=== PATIENT | male | born 1990 | race Caucasian/White ===

== ENCOUNTER 2021-12-28 10:10 | Emergency (ER) | payer SELFPAY ==
[2021-12-28 10:13] VITALS: RESP 20; TEMP 98
[2021-12-28] MEDS ORDERED: KETOROLAC 15 MG/ML 1 ML VIAL IVP STA (12:02)
[2021-12-28] MEDS ORDERED: CYCLOBENZAPRINE 10 MG TAB PO STA (12:04)
[2021-12-28] MEDS ORDERED: LIDOCAINE 5% PATCH TOPICAL SCH (12:15)
--- NOTE | 2021-12-28 12:33 | XR ---
EXAMINATION TYPE: XR ribs LT w pa chest xray DATE OF EXAM: 12/28/2021 12:13 PM INDICATION: Patient age:Male; 31 years old; Reason for study: pain; PHH. COMPARISON: None TECHNIQUE: Frontal and oblique views of the left ribs with frontal chest radiograph. FINDINGS: The ribs have a normal appearance. No evidence of fracture. Overall, the lungs are clear. The cardiac silhouette is normal in size. The remaining osseous structures are intact. IMPRESSION RIBS: No acute osseous pathology.
--- NOTE | 2021-12-28 12:48 | ED ---
Back Pain HPI - General Chief Complaint: Back Pain/Injury Stated Complaint: back pain Time Seen by Provider: 12/28/21 11:57 Source: patient Limitations: no limitations - History of Present Illness Initial Comments: Patient is an otherwise healthy male who presents to the emergency department with a chief complaint of left rib pain. Patient states he was on a ladder reaching up for something in his garage yesterday when he felt pain in his ribs. Pain is worsened with movement of the torso. Patient has not taken any for pain. Patient did not fall or hit his head. Denies back pain. Denies chest pain and shortness of breath. - Related Data Previous Rx's Medication Instructions Recorded Cyclobenzaprine [Flexeril] 10 mg PO HS PRN #7 tab 12/28/21 Ketorolac [Toradol] 10 mg PO Q8HR #15 tab 12/28/21 Lidocaine 5% Patch [Lidoderm 5% 1 patch TOPICAL DAILY #7 patch 12/28/21 Patch] Allergies Allergy/AdvReac Type Severity Reaction Status Date / Time No Known Allergies Allergy Verified 12/28/21 10:13 Review of Systems ROS Statement: Those systems with pertinent positive or pertinent negative responses have been documented in the HPI. ROS Other: All systems not noted in ROS Statement are negative. Past Medical History Past Medical History: Asthma History of Any Multi-Drug Resistant Organisms: None Reported Past Surgical History: No Surgical Hx Reported Past Psychological History: No Psychological Hx Reported Smoking Status: Current every day smoker Past Alcohol Use History: None Reported Past Drug Use History: Marijuana General Exam Limitations: no limitations General appearance: alert, in no apparent distress Head exam: Present: atraumatic, normocephalic, normal inspection Eye exam: Present: normal appearance, PERRL, EOMI. Absent: scleral icterus, conjunctival injection, periorbital swelling Respiratory exam: Present: normal lung sounds bilaterally, chest wall tenderness (left lateral lower ribs ). Absent: respiratory distress, wheezes, rales, rhonchi, stridor, decreased breath sounds Cardiovascular Exam: Present: regular rate, normal rhythm, normal heart sounds. Absent: systolic murmur, diastolic murmur, rubs, gallop, clicks GI/Abdominal exam: Present: soft, normal bowel sounds. Absent: distended, tenderness, guarding, rebound, rigid Back exam: Present: normal inspection. Absent: tenderness, paraspinal tenderness, vertebral tenderness Neurological exam: Present: alert, oriented X3, CN II-XII intact Psychiatric exam: Present: normal affect, normal mood Skin exam: Present: warm, dry, intact, normal color. Absent: rash Course Vital Signs 12/28/21 12/28/21 10:12 13:28 Temperature 98 F Pulse Rate 73 74 Respiratory 20 20 Rate Blood Pressure 154/95 132/78 O2 Sat by Pulse 99 99 Oximetry Medical Decision Making - Medical Decision Making This is a 31-year-old male who presents with left rib pain. Chest and rib x- rays unremarkable. Symptomatic treatment provided in the emergency department with improvement of symptoms. He will be discharged with medication for muscle strain. Dr. Talbert is my attending. Disposition Clinical Impression: Rib pain on left side, Muscle strain Disposition: HOME SELF-CARE Condition: Good Instructions (If sedation given, give patient instructions): Muscle Strain (ED) Additional Instructions: Take medication as directed. Do not drink alcohol or machinery while taking Flexeril as it can make you sleepy. Follow-up with primary care provider in one to 2 days. Return to the emergency department experience new, concerning or worsening symptoms. Prescriptions: Cyclobenzaprine [Flexeril] 10 mg PO HS PRN #7 tab PRN Reason: Muscle Spasm Lidocaine 5% Patch [Lidoderm 5% Patch] 1 patch TOPICAL DAILY #7 patch Ketorolac [Toradol] 10 mg PO Q8HR #15 tab Is patient prescribed a controlled substance at d/c from ED?: No Referrals: None,Stated [Primary Care Provider] - 1-2 days Time of Disposition: 12:48
[2021-12-28 13:28] VITALS: BP 132/78; PULSE 74
== END 2021-12-28 13:29 | disposition home or self-care (01) ==
LOC: EC 10:10
DX: S29.011A Strain of muscle and tendon of front wall of thorax, initial encounter (principal); J45.909 Unspecified asthma, uncomplicated; F17.200 Nicotine dependence, unspecified, uncomplicated; F12.90 Cannabis use, unspecified, uncomplicated; Z79.899 Other long term (current) drug therapy; X50.9XXA Other and unspecified overexertion or strenuous movements or postures, initial encounter
CPT/HCPCS: 99283; 96374; 71101; J1885

== ENCOUNTER 2022-03-05 20:32 | Emergency (ER) | payer BC ==
[2022-03-05 21:10] VITALS: BP 141/91; PULSE 83; RESP 16; TEMP 98.6
[2022-03-05] MEDS ORDERED: Acetaminophen-Codeine 300-30mg TAB PO STA (21:37)
[2022-03-05] MEDS ORDERED: AMOXIC-POT CLAV 875MG STARTER PACK 2 TAB BTL PO STA (21:37)
[2022-03-05] MEDS ORDERED: IBUPROFEN 600 MG TAB PO STA (21:37)
[2022-03-05] MEDS ORDERED: dexAMETHasone 2 MG TAB PO STA (21:37)
[2022-03-05] MEDS ORDERED: AMOXIC-POT CLAV 875-125MG 1 EACH TAB PO STA (21:37)
[2022-03-05] MEDS ORDERED: IBUPROFEN 600 MG STARTER PACK 4 TAB BTL PO STA (21:37)
[2022-03-05] MEDS ORDERED: ACET/COD 300 MG/30 MG STARTER PACK 6 TAB BTL PO STA (21:37)
--- NOTE | 2022-03-05 21:38 | ED ---
ENT HPI - General Chief complaint: Dental/Oral Stated complaint: Dental issues Time Seen by Provider: 03/05/22 21:24 Source: patient, RN notes reviewed, old records reviewed Mode of arrival: ambulatory Limitations: no limitations - History of Present Illness Initial comments: This is a 32-year-old male to the emergency department for evaluation. Patient coming in for severe tooth pain. Patient has history of dental disease and dental caries. Swelling and difficulty chewing. Pain is severe tonight and is unable to sleep MD complaint: tooth pain, ear pain -: hour(s) Location: tooth # Severity: severe Severity scale (1-10): 8 Quality: stabbing Consistency: constant Improves with: none Worsens with: none Context- Dental: history of dental caries, poor dental care Associated Symptoms: other (0) - Related Data Previous Rx's Medication Instructions Recorded Cyclobenzaprine [Flexeril] 10 mg PO HS PRN #7 tab 12/28/21 Ketorolac [Toradol] 10 mg PO Q8HR #15 tab 12/28/21 Lidocaine 5% Patch [Lidoderm 5% 1 patch TOPICAL DAILY #7 patch 12/28/21 Patch] Amoxic-Pot Clav 875-125Mg 1 tab PO Q12HR #20 tablet 03/05/22 [Augmentin 875-125] Allergies Allergy/AdvReac Type Severity Reaction Status Date / Time No Known Allergies Allergy Verified 03/05/22 21:08 Review of Systems ROS Statement: Those systems with pertinent positive or pertinent negative responses have been documented in the HPI. ROS Other: All systems not noted in ROS Statement are negative. Past Medical History Past Medical History: Asthma History of Any Multi-Drug Resistant Organisms: None Reported Past Surgical History: No Surgical Hx Reported Past Psychological History: No Psychological Hx Reported Smoking Status: Current every day smoker Past Alcohol Use History: None Reported Past Drug Use History: Marijuana General Exam Limitations: no limitations General appearance: alert, in no apparent distress Head exam: Present: atraumatic, normocephalic, normal inspection Eye exam: Present: normal appearance, PERRL, EOMI. Absent: scleral icterus, conjunctival injection, periorbital swelling ENT exam: Present: normal exam, mucous membranes moist Neck exam: Present: normal inspection. Absent: tenderness, meningismus, lymphadenopathy Respiratory exam: Present: normal lung sounds bilaterally. Absent: respiratory distress, wheezes, rales, rhonchi, stridor Cardiovascular Exam: Present: regular rate, normal rhythm, normal heart sounds. Absent: systolic murmur, diastolic murmur, rubs, gallop, clicks GI/Abdominal exam: Present: soft, normal bowel sounds. Absent: distended, tenderness, guarding, rebound, rigid Extremities exam: Present: normal inspection, full ROM, normal capillary refill. Absent: tenderness, pedal edema, joint swelling, calf tenderness Back exam: Present: normal inspection Neurological exam: Present: alert, oriented X3, CN II-XII intact Psychiatric exam: Present: normal affect, normal mood Skin exam: Present: warm, dry, intact, normal color. Absent: rash Course Vital Signs 03/05/22 21:08 Temperature 98.6 F Pulse Rate 83 Respiratory 16 Rate Blood Pressure 141/91 O2 Sat by Pulse 99 Oximetry - Reevaluation(s) Reevaluation #1: 03/05/22 Medical records reviewed Patient symptoms improved here in the ER Patient informed of results and questions answered Medical Decision Making - Medical Decision Making 32 male to the emergency department for evaluation of dental pain. Severe tooth pain place on antibiotics and pain medication and can be discharged home Disposition Clinical Impression: Dental abscess, Toothache, Dental caries Disposition: HOME SELF-CARE Condition: Good Instructions (If sedation given, give patient instructions): Dental Abscess (ED), Toothache (ED) Prescriptions: Amoxic-Pot Clav 875-125Mg [Augmentin 875-125] 1 tab PO Q12HR #20 tablet Is patient prescribed a controlled substance at d/c from ED?: No Referrals: None,Stated [REFERRING] - 1-2 days Time of Disposition: 21:40
== END 2022-03-05 21:58 | disposition home or self-care (01) ==
LOC: EC 20:32
DX: K04.7 Periapical abscess without sinus (principal); K02.9 Dental caries, unspecified; J45.909 Unspecified asthma, uncomplicated; F17.200 Nicotine dependence, unspecified, uncomplicated; F12.90 Cannabis use, unspecified, uncomplicated
CPT/HCPCS: 99283; J8540

== ENCOUNTER 2022-03-31 01:14 | Emergency (ER) | payer BC ==
[2022-03-31 01:26] VITALS: TEMP 97.9
[2022-03-31] MEDS ORDERED: diphenhydrAMINE 50 MG/ML 1 ML VIAL IVP STA (04:05)
[2022-03-31] MEDS ORDERED: ONDANSETRON 4 MG/2 ML VIAL IVP STA (04:05)
[2022-03-31] MEDS ORDERED: KETOROLAC 15 MG/ML 1 ML VIAL IVP STA (04:05)
[2022-03-31] MEDS ORDERED: SODIUM CHLORIDE 0.9% 1,000 ML IV STA (04:05)
--- NOTE | 2022-03-31 04:11 | ED ---
General Adult HPI - General Chief complaint: Headache Stated complaint: Migraine, Vomiting Time Seen by Provider: 03/31/22 03:53 Source: patient Mode of arrival: ambulatory Limitations: no limitations - History of Present Illness Initial comments: Dictation was produced using [employer] dictation software. please excuse any grammatical, word or spelling errors. Chief Complaint: 32-year-old male presents emergency department for headache History of Present Illness: 32-year-old male who presents emergency department for headache. Patient's headache since approximately 10:00 last night. States that his headache is severe. He does have a history of headaches however today's headache is very different. No numbness or paresthesias. It is not radiate to his neck. No neck stiffness. Denies any fever, chills or night sweats. Patient was not able to work because of his symptoms. The ROS documented in this emergency department record has been reviewed and confirmed by me. Those systems with pertinent positive or negative responses have been documented in the HPI. All other systems are other negative and/or noncontributory. PHYSICAL EXAM: General Impression: Alert and oriented x3, not in acute distress HEENT: Normocephalic atraumatic, extra-ocular movements intact, pupils equal and reactive to light bilaterally, mucous membranes moist. Cardiovascular: Heart regular rate and rhythm Chest: Able to complete full sentences, no retractions, no tachypnea Abdomen: abdomen soft, non-tender, non-distended, no organomegaly Musculoskeletal: Pulses present and equal in all extremities, no peripheral edema Motor: no focal deficits noted Neurological: CN II-XII grossly intact, no focal motor or sensory deficits noted, negative Lhermitte's, negative Kernig's, negative Brudzinski Skin: Intact with no visualized rashes Psych: Normal affect and mood ED course: 32-year-old well-appearing male presents emergency department for headache. Signs upon arrival are within acceptable limits. Patient's well- appearing at bedside resting comfortably. Nursing notes and chart review was performed Computed tomography scan unremarkable. Patient given headache cocktail. Patient is benign appearing. No high-risk features. Patient will be discharged. - Related Data Previous Rx's Medication Instructions Recorded Cyclobenzaprine [Flexeril] 10 mg PO HS PRN #7 tab 12/28/21 Ketorolac [Toradol] 10 mg PO Q8HR #15 tab 12/28/21 Lidocaine 5% Patch [Lidoderm 5% 1 patch TOPICAL DAILY #7 patch 12/28/21 Patch] Amoxic-Pot Clav 875-125Mg 1 tab PO Q12HR #20 tablet 03/05/22 [Augmentin 875-125] Allergies Allergy/AdvReac Type Severity Reaction Status Date / Time No Known Allergies Allergy Verified 03/31/22 01:26 Review of Systems ROS Statement: Those systems with pertinent positive or pertinent negative responses have been documented in the HPI. ROS Other: All systems not noted in ROS Statement are negative. Past Medical History Past Medical History: Asthma History of Any Multi-Drug Resistant Organisms: None Reported Past Surgical History: No Surgical Hx Reported Past Psychological History: No Psychological Hx Reported Smoking Status: Current every day smoker Past Alcohol Use History: Occasional Past Drug Use History: Marijuana General Exam Limitations: no limitations Course Vital Signs 03/31/22 03/31/22 01:24 05:28 Temperature 97.9 F Pulse Rate 117 H 84 Respiratory 18 15 Rate Blood Pressure 138/82 133/78 O2 Sat by Pulse 96 99 Oximetry Disposition Clinical Impression: Acute headache Disposition: HOME SELF-CARE Condition: Good Instructions (If sedation given, give patient instructions): Acute Headache (ED) Is patient prescribed a controlled substance at d/c from ED?: No Referrals: Donte Salazar DO [Primary Care Provider] - 1-2 days Time of Disposition: 05:30
--- NOTE | 2022-03-31 04:32 | CT ---
EXAMINATION TYPE: CT brain wo con DATE OF EXAM: 03/31/2022 COMPARISON: None HISTORY: Headache with nausea and vomitting. CT DLP: 1123.2 mGycm Automated exposure control for dose reduction was used. Images obtained of the brain with no contrast. Ventricles have normal size. There is no mass effect or midline shift. No sign of intracranial hemorr emily. No evidence of cerebral edema. Calvarium is intact. IMPRESSION: Negative unenhanced head CT scan
[2022-03-31 05:29] VITALS: BP 133/78; PULSE 84; RESP 15
== END 2022-03-31 05:40 | disposition home or self-care (01) ==
LOC: EC 01:14
DX: G43.909 Migraine, unspecified, not intractable, without status migrainosus (principal); J45.909 Unspecified asthma, uncomplicated; F17.200 Nicotine dependence, unspecified, uncomplicated; F12.90 Cannabis use, unspecified, uncomplicated
CPT/HCPCS: 70450; 99284; 96374; 96375 ×2; 96361; J1200; J2405; J1885

== ENCOUNTER 2022-05-19 07:06 | Emergency (ER) | payer BC ==
[2022-05-19 07:14] VITALS: RESP 18; TEMP 98.2
[2022-05-19] MEDS ORDERED: ONDANSETRON 4 MG/2 ML VIAL IVP STA (07:26)
[2022-05-19] MEDS ORDERED: DICYCLOMINE 10 MG/ML 2 ML AMP IM STA (07:26)
[2022-05-19] MEDS ORDERED: SODIUM CHLORIDE 0.9% 1,000 ML IV STA (07:26)
[2022-05-19] MEDS ORDERED: FAMOTIDINE 20 MG/2 ML VIAL IV STA (07:29)
--- NOTE | 2022-05-19 07:30 | ED ---
General Adult HPI - General Chief complaint: Nausea/Vomiting/Diarrhea Stated complaint: Nausea,light headed,diarrhea Time Seen by Provider: 05/19/22 07:19 Source: patient, RN notes reviewed Mode of arrival: ambulatory Limitations: no limitations - History of Present Illness Initial comments: Patient is a pleasant 32-year-old male presenting to the emergency department with concerns for nausea vomiting diarrhea. Onset of symptoms was last night. Patient vomited multiple times and also had several episodes of diarrhea. Patient states diarrhea seems to be letting up however still nauseated. No significant abdominal pain. Patient did have some burning in his chest during emesis only, not otherwise. No pain at this time. - Related Data Previous Rx's Medication Instructions Recorded Cyclobenzaprine [Flexeril] 10 mg PO HS PRN #7 tab 12/28/21 Ketorolac [Toradol] 10 mg PO Q8HR #15 tab 12/28/21 Lidocaine 5% Patch [Lidoderm 5% 1 patch TOPICAL DAILY #7 patch 12/28/21 Patch] Amoxic-Pot Clav 875-125Mg 1 tab PO Q12HR #20 tablet 03/05/22 [Augmentin 875-125] Allergies Allergy/AdvReac Type Severity Reaction Status Date / Time No Known Allergies Allergy Verified 05/19/22 07:14 Review of Systems ROS Statement: Those systems with pertinent positive or pertinent negative responses have been documented in the HPI. ROS Other: All systems not noted in ROS Statement are negative. Constitutional: Denies: fever Eyes: Denies: eye pain ENT: Denies: ear pain Respiratory: Denies: cough Cardiovascular: Reports: as per HPI Endocrine: Denies: fatigue Gastrointestinal: Reports: nausea, vomiting, diarrhea Past Medical History Past Medical History: Asthma History of Any Multi-Drug Resistant Organisms: None Reported Past Surgical History: No Surgical Hx Reported Past Psychological History: No Psychological Hx Reported Smoking Status: Current every day smoker Past Alcohol Use History: Occasional Past Drug Use History: Marijuana General Exam Limitations: no limitations General appearance: alert, in no apparent distress Head exam: Present: normocephalic Eye exam: Present: normal appearance Neck exam: Present: normal inspection Respiratory exam: Present: normal lung sounds bilaterally Cardiovascular Exam: Present: tachycardia Expanded Peripheral pulses: 2+: Posterior Tibialis (R), Posterior Tibialis (L) GI/Abdominal exam: Present: soft, normal bowel sounds. Absent: distended, tenderness, guarding, rebound, rigid, pulsatile mass Extremities exam: Present: normal inspection. Absent: pedal edema, calf tenderness Neurological exam: Present: alert Psychiatric exam: Present: normal affect, normal mood Skin exam: Present: normal color Course Vital Signs 05/19/22 07:07 Temperature 98.2 F Pulse Rate 118 H Respiratory 18 Rate Blood Pressure 146/89 O2 Sat by Pulse 96 Oximetry EKG Findings - EKG Results: EKG: interpreted by ERMD (Septal Q waves), sinus rhythm, normal axis, normal ST/T EKG shows: tachycardia Medical Decision Making - Medical Decision Making Was pt. sent in by a medical professional or institution (, PA, IT SPECIALIST, urgent care, hospital, or correction...) When possible be specific @ -No Did you speak to anyone other than the patient for history (EMS, parent, family, police, friend...)? What history was obtained from this source @ -No Did you review nursing and triage notes (agree or disagree)? Why? @ -I reviewed and agree with nursing and triage notes Were old charts reviewed (outside hosp., previous admission, EMS record, old EKG, old radiological studies, urgent care reports/EKG's, correction records)? Report findings @ -No old charts were reviewed Differential Diagnosis (chest pain, altered mental status, abdominal pain women, abdominal pain men, vaginal bleeding, weakness, fever, dyspnea, syncope, headache, dizziness, GI bleed, back pain, seizure, CVA, palpatations, mental health)? @ -Differential Abdominal Pain Men: Appendicitis, cholecystitis, diverticulosis, ischemic bowel, pancreatitis, hepatitis, UTI, gastroenteritis, AAA, incarcerated hernia, bowel obstruction, constipation, inflammatory bowel, hepatitis, peptic ulcer disease, splenic infarction, perforated viscus, testicular torsion, this is not meant to be an all-inclusive list EKG interpreted by me (3pts min.). @ -As above X-rays interpreted by me (1pt min.). @ -None done CT interpreted by me (1pt min.). @ -None done U/S interpreted by me (1pt. min.). @ -None done What testing was considered but not performed or refused? (CT, X-rays, U/S, labs)? Why? @ -None What meds were considered but not given or refused? Why? @ -None Did you discuss the management of the patient with other professionals (professionals i.e. , PA, IT SPECIALIST, lab, RT, psych nurse, drug abuse social worker, technical marketing engineer, teacher, police booking officer, nurse outreach case manager)? Give summary @ -No Was smoking cessation discussed for >3mins.? @ -No Was critical care preformed (if so, how long)? @ -No Were there social determinants of health that impacted care today? How? (Homelessness, low income, unemployed, alcoholism, drug addiction, transportation, low edu. Level, literacy, decrease access to med. care, nursing home, rehab)? @ -No Was there de-escalation of care discussed even if they declined (Discuss DNR or withdrawal of care, Hospice)? DNR status @ -No What co-morbidities impacted this encounter? (DM, HTN, Smoking, COPD, CAD, Cancer, CVA, ARF, Chemo, Hep., AIDS, mental health diagnosis, sleep apnea, morbid obesity)? @ -None Was patient admitted / discharged? Hospital course, mention meds given and route, prescriptions, significant lab abnormalities, going to OR and other pertinent info. @ -Patient reevaluated and feeling much better. Patient updated on results and need for follow-up. Patient does request work no. Patient will be discharged Undiagnosed new problem with uncertain prognosis? @ -No Drug Therapy requiring intensive monitoring for toxicity (Heparin, Nitro, Insulin, Cardizem)? @ -No Were any procedures done? @ -No Diagnosis/symptom? @ -Acute vomiting Acute, or Chronic, or Acute on Chronic? @ -Acute Uncomplicated (without systemic symptoms) or Complicated (systemic symptoms)? @ -default Side effects of treatment? @ -No Exacerbation, Progression, or Severe Exacerbation? @ -No Poses a threat to life or bodily function? How? (Chest pain, USA, NC, pneumonia, PE, COPD, DKA, ARF, appy, cholecystitis, CVA, Diverticulitis, Homicidal, Suicidal, threat to staff... and all critical care pts) @ -[No] - Lab Data Result diagrams: 05/19/22 07:24 05/19/22 08:14 Lab Results 05/19/22 05/19/22 Range/Units 07:24 08:14 WBC 11.4 H (3.8-10.6) k/uL RBC 5.48 (4.30-5.90) m/uL Hgb 16.8 (13.0-17.5) gm/dL Hct 47.3 (39.0-53.0) % MCV 86.3 (80.0-100.0) fL MCH 30.6 (25.0-35.0) pg MCHC 35.5 (31.0-37.0) g/dL RDW 11.7 (11.5-15.5) % Plt Count 273 (150-450) k/uL MPV 7.0 Neutrophils % 87 % Lymphocytes % 6 % Monocytes % 4 % Eosinophils % 2 % Basophils % 0 % Neutrophils # 9.9 H (1.3-7.7) k/uL Lymphocytes # 0.7 L (1.0-4.8) k/uL Monocytes # 0.5 (0-1.0) k/uL Eosinophils # 0.2 (0-0.7) k/uL Basophils # 0.0 (0-0.2) k/uL Hyperchromasia Slight Sodium 138 (137-145) mmol/L Potassium 3.9 (3.5-5.1) mmol/L Chloride 107 (98-107) mmol/L Carbon Dioxide 25 (22-30) mmol/L Anion Gap 6 mmol/L BUN 11 (9-20) mg/dL Creatinine 0.66 (0.66-1.25) mg/dL Est GFR (CKD-EPI)AfAm >90 (>60 ml/min/1.73 sqM) Est GFR (CKD-EPI)NonAf >90 (>60 ml/min/1.73 sqM) Glucose 95 (74-99) mg/dL Calcium 8.8 (8.4-10.2) mg/dL Total Bilirubin 2.0 H (0.2-1.3) mg/dL AST 29 (17-59) U/L ALT 18 (4-49) U/L Alkaline Phosphatase 74 (38-126) U/L Total Protein 7.3 (6.3-8.2) g/dL Albumin 4.4 (3.5-5.0) g/dL Amylase 47 (30-110) U/L Lipase 66 (23-300) U/L Disposition Clinical Impression: Vomiting Disposition: HOME SELF-CARE Condition: Stable Instructions (If sedation given, give patient instructions): Acute Nausea and Vomiting (ED) Additional Instructions: Please do follow-up with primary care physician in the next day or 2 for recheck. Return for pain, fever, uncontrolled vomiting, not tolerating fluids, worsening symptoms or other concerns. Is patient prescribed a controlled substance at d/c from ED?: No Referrals: Lady Morgan PAC [Primary Care Provider] - 1-2 days Time of Disposition: 09:19
[2022-05-19 07:50] LABS: Basophils % (A) 0 %; Eosinophils # (A) 0.2 k/uL (0-0.7); Eosinophils % (A) 2 %; HCT 47.3 % (39.0-53.0); HGB 16.8 gm/dL (13.0-17.5); Hyperchromasia Slight; Lymphocytes # (A) 0.7 k/uL (1.0-4.8); Lymphocytes % (A) 6 %; MCH 30.6 pg (25.0-35.0); MCHC 35.5 g/dL (31.0-37.0); MCV 86.3 fL (80.0-100.0); Monocytes # (A) 0.5 k/uL (0-1.0); Monocytes % (A) 4 %; Neutrophils # (A) 9.9 k/uL (1.3-7.7); Neutrophils % (A) 87 %; Platelet Count 273 k/uL (150-450); RBC 5.48 m/uL (4.30-5.90); RDW 11.7 % (11.5-15.5); WBC 11.4 k/uL (3.8-10.6)
[2022-05-19 08:35] LABS: ALT 18 U/L (4-49); AST 29 U/L (17-59); African American GFR (CKD) >90 (>60 ml/min/1.73 sqM); Albumin 4.4 g/dL (3.5-5.0); Alkaline Phosphatase 74 U/L (38-126); Amylase 47 U/L (30-110); Anion Gap 6 mmol/L; Blood Urea Nitrogen 11 mg/dL (9-20); Calcium 8.8 mg/dL (8.4-10.2); Carbon Dioxide 25 mmol/L (22-30); Chloride 107 mmol/L (98-107); Glucose 95 mg/dL (74-99); Lipase 66 U/L (23-300); Non-African American GFR(CKD) >90 (>60 ml/min/1.73 sqM); Sodium 138 mmol/L (137-145); Total Protein 7.3 g/dL (6.3-8.2)
[2022-05-19 08:51] LABS: Potassium 3.9 mmol/L (3.5-5.1)
[2022-05-19] MEDS ORDERED: ONDANSETRON 4 MG ODT STARTER PACK 2 TAB BTL PO STA (09:16)
[2022-05-19 09:40] VITALS: BP 136/78; PULSE 90
== END 2022-05-19 09:40 | disposition home or self-care (01) ==
LOC: EC 07:06
DX: R11.10 Vomiting, unspecified (principal); J45.909 Unspecified asthma, uncomplicated; F17.200 Nicotine dependence, unspecified, uncomplicated; F12.90 Cannabis use, unspecified, uncomplicated
CPT/HCPCS: 36415; 93005; 80053; 82150; 83690; 85025; 99284; 96374; 96375; 96361; 96372; J0500; J2405; S0119

== ENCOUNTER 2022-05-21 21:38 | Emergency (ER) | payer OTHER, BC ==
[2022-05-21 21:43] VITALS: BP 157/82; PULSE 103; RESP 16; TEMP 97.9
[2022-05-21] MEDS ORDERED: HYDROcodone/APAP 5-325MG 1 EACH TAB PO STA (21:57)
[2022-05-21] MEDS ORDERED: KETOROLAC 15 MG/ML 1 ML VIAL IM STA (21:57)
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
--- NOTE | 2022-05-21 22:28 | XR ---
EXAMINATION TYPE: XR knee complete LT DATE OF EXAM: 05/21/2022 COMPARISON: NONE HISTORY: Pain TECHNIQUE: 3 views FINDINGS: There is no sign of fracture nor dislocation. Joint spaces are normal. No sign of knee join t effusion. IMPRESSION: Negative left knee exam. No fracture.
[2022-05-21] MEDS ORDERED: ACET/COD 300 MG/30 MG STARTER PACK 6 TAB BTL PO STA (22:39)
[2022-05-21] MEDS ORDERED: IBUPROFEN 600 MG STARTER PACK 4 TAB BTL PO STA (22:39)
== END 2022-05-21 22:45 | disposition home or self-care (01) ==
LOC: EC 21:38
DX: S80.02XA Contusion of left knee, initial encounter (principal); S09.90XA Unspecified injury of head, initial encounter; J45.909 Unspecified asthma, uncomplicated; F12.90 Cannabis use, unspecified, uncomplicated; F17.200 Nicotine dependence, unspecified, uncomplicated; V49.9XXA Car occupant (driver) (passenger) injured in unspecified traffic accident, initial encounter; Y92.410 Unspecified street and highway as the place of occurrence of the external cause
CPT/HCPCS: 73562; 72125; 70450; 99284; 96372; J1885

== ENCOUNTER 2022-08-31 22:24 | Emergency (ER) | payer BC, OTHER ==
--- NOTE | 2022-08-31 23:05 | XR ---
EXAMINATION TYPE: XR elbow complete RT DATE OF EXAM: 08/31/2022 CLINICAL HISTORY: fall injury with pain TECHNIQUE: Frontal, lateral and oblique images of the right elbow are obtained. COMPARISON: None FINDINGS: There is no acute fracture/dislocation evident in the right elbow. No abnormal fat pad si gns are seen. The overlying soft tissue appears unremarkable. IMPRESSION: There is no acute fracture or dislocation in the right elbow.
[2022-08-31] MEDS ORDERED: IBUPROFEN 600 MG STARTER PACK 4 TAB BTL PO STA (23:16)
[2022-08-31] MEDS ORDERED: ACET/COD 300 MG/30 MG STARTER PACK 6 TAB BTL PO STA (23:16)
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
[2022-08-31 23:31] VITALS: BP 151/78; PULSE 81; RESP 16; TEMP 98
== END 2022-08-31 23:30 | disposition home or self-care (01) ==
LOC: EC 22:24
DX: S50.01XA Contusion of right elbow, initial encounter (principal); J45.909 Unspecified asthma, uncomplicated; F17.200 Nicotine dependence, unspecified, uncomplicated; F12.90 Cannabis use, unspecified, uncomplicated; W18.30XA Fall on same level, unspecified, initial encounter
CPT/HCPCS: 99283

== ENCOUNTER → 2023-06-16 | Outpatient (CLI) | payer OTHER ==
[2023-06-16 15:48] LABS: Basophils # (A) 0.03 X 10*3/uL (0.00-0.10); Basophils % (A) 0.4 %; Eosinophils # (A) 0.11 X 10*3/uL (0.04-0.35); Eosinophils % (A) 1.5 %; HCT 47.3 % (39.6-50.0); HGB 16.7 g/dL (13.0-17.0); Lymphocytes # (A) 2.08 X 10*3/uL (0.90-5.00); Lymphocytes % (A) 29.2 %; MCHC 35.3 g/dL (32.0-37.0); MCV 87.8 FL (80.0-97.0); Mean Platelet Volume 9.2 FL (9.5-12.2); Monocytes % (A) 8.4 %; NRBC Per 100 WBC 0 X 10*3/uL (0.00-0.01); Neutrophils # (A) 4.29 X 10*3/uL (1.80-7.70); Neutrophils % (A) 60.2 %; Platelet Count 291 X 10*3/uL (140-440); RBC 5.39 X 10*6/uL (4.40-5.60); RDW 11.8 % (11.5-14.5); WBC 7.13 X 10*3/uL (4.50-10.00)
[2023-06-16 16:48] LABS: ALT 24 U/L (10-49); AST 25 U/L (14-35); Albumin 4.7 g/dL (3.8-4.9); Albumin/Globulin Ratio 2.04 Ratio (1.60-3.17); Alkaline Phosphatase 73 U/L (41-126); BUN/Creat Ratio 12.11 Ratio (12.00-20.00); Blood Urea Nitrogen 10.9 mg/dL (9.0-27.0); Calcium 9.4 mg/dL (8.7-10.3); Carbon Dioxide 23.4 mmol/L (21.6-31.8); Chloride 104 mmol/L (96-109); Chol/HDL Ratio 4.37 Ratio; Globulin 2.3 g/dL (1.6-3.3); Glucose 95 mg/dL (70-110); Potassium 4.6 mmol/L (3.5-5.5); Sodium 139 mmol/L (135-145); T4, Free (Free Thyroxine) 0.96 ng/dL (0.80-1.80); Total Bilirubin 1.1 mg/dL (0.3-1.2)
== END | disposition home or self-care (01) ==
LOC: LABWHC1 08:22
PROVIDERS: ATTEND Nurse Practitioner Psychiatric/Mental Health
DX: F41.1 Generalized anxiety disorder (principal); F43.10 Post-traumatic stress disorder, unspecified; Z79.899 Other long term (current) drug therapy
CPT/HCPCS: 36415; 80053; 80061; 82306; 82607; 82746; 83036; 84439; 84443; 85025

== ENCOUNTER 2023-12-28 07:28 | Emergency (ER) | payer OTHER ==
[2023-12-28 07:33] VITALS: RESP 18
--- NOTE | 2023-12-28 08:06 | ED ---
General Adult HPI - General Chief complaint: Upper Respiratory Infection Stated complaint: congestion/sore throat Time Seen by Provider: 12/28/23 07:31 Source: patient Mode of arrival: ambulatory Limitations: no limitations - History of Present Illness Initial comments: Dictation was produced using [employer] dictation software. please excuse any grammatical, word or spelling errors. Chief Complaint: 33-year-old male presents to the emergency department for sore throat and cough History of Present Illness: Patient 33-year-old male presents emergency d epartment for sore throat and cough since yesterday. Patient states that he has been having cough productive of sputum. Patient Nuys any fever chills or night sweats. Patient denies any significant comorbidities. States that he has some chest pain whenever he coughs. The ROS documented in this emergency department record has been reviewed and confirmed by me. Those systems with pertinent positive or negative responses have been documented in the HPI. All other systems are other negative and/or noncontributory. - Related Data Previous Rx's Medication Instructions Recorded Cyclobenzaprine [Flexeril] 10 mg PO HS PRN #7 tab 12/28/21 Ketorolac [Toradol] 10 mg PO Q8HR #15 tab 12/28/21 Lidocaine 5% Patch [Lidoderm 5% 1 patch TOPICAL DAILY #7 patch 12/28/21 Patch] Amoxic-Pot Clav 875-125Mg 1 tab PO Q12HR #20 tablet 03/05/22 [Augmentin 875-125] Allergies Allergy/AdvReac Type Severity Reaction Status Date / Time No Known Allergies Allergy Verified 12/28/23 07:32 Review of Systems ROS Statement: Those systems with pertinent positive or pertinent negative responses have been documented in the HPI. ROS Other: All systems not noted in ROS Statement are negative. Past Medical History Past Medical History: Asthma History of Any Multi-Drug Resistant Organisms: None Reported Past Surgical History: No Surgical Hx Reported Past Psychological History: No Psychological Hx Reported Smoking Status: Current every day smoker Past Alcohol Use History: Occasional Past Drug Use History: Marijuana General Exam - General Exam Comments Initial Comments: PHYSICAL EXAM: General Impression: Alert and oriented x3, not in acute distress HEENT: Normocephalic atraumatic, extra-ocular movements intact, pupils equal and reactive to light bilaterally, mucous membranes moist, posterior pharyngeal erythema Cardiovascular: Heart regular rate and rhythm Chest: Able to complete full sentences, no retractions, no tachypnea Abdomen: abdomen soft, non-tender, non-distended, no organomegaly Musculoskeletal: Pulses present and equal in all extremities, no peripheral edema Motor: no focal deficits noted Neurological: CN II-XII grossly intact, no focal motor or sensory deficits noted Skin: Intact with no visualized rashes Psych: Normal affect and mood Limitations: no limitations Course Vital Signs 12/28/23 12/28/23 07:30 08:11 Temperature 98.8 F Pulse Rate 98 Respiratory 18 18 Rate Blood Pressure 144/81 O2 Sat by Pulse 99 Oximetry Medical Decision Making - Medical Decision Making Was pt. sent in by a medical professional or institution (, PA, LEAD TECHNOLOGIST IN CYTOGENETICS, urgent care, hospital, or prison...) When possible be specific @ -No Did you speak to anyone other than the patient for history (EMS, parent, family, police, friend...)? What history was obtained from this source @ -No Did you review nursing and triage notes (agree or disagree)? Why? @ -I reviewed and agree with nursing and triage notes Were old charts reviewed (outside hosp., previous admission, EMS record, old EKG, old radiological studies, urgent care reports/EKG's, prison records)? Report findings @ -No old charts were reviewed Differential Diagnosis (chest pain, altered mental status, abdominal pain women, abdominal pain men, vaginal bleeding, musculoskeletal, weakness, fever, dyspnea, syncope, headache, dizziness, GI bleed, back pain, seizure, CVA, palpatations, mental health)? @ -COVID, coronavirus, strep throat, pneumonia EKG interpreted by me (3pts min.). @ -None done X-rays interpreted by me (1pt min.). @ -Chest x-ray shows no acute processes CT interpreted by me (1pt min.). @ -None done U/S interpreted by me (1pt. min.). @ -None done What testing was considered but not performed or refused? (CT, X-rays, U/S, labs)? Why? @ -None What meds were considered but not given or refused? Why? @ -None Was smoking cessation discussed for >3mins.? @ -No Were there social determinants of health that impacted care today? How? (Homelessness, low income, unemployed, alcoholism, drug addiction, transportation, low edu. Level, literacy, decrease access to med. care, intermediate, rehab)? @ -No Was there de-escalation of care discussed even if they declined (Discuss DNR or withdrawal of care, Hospice)? DNR status @ -No What co-morbidities impacted this encounter? (DM, HTN, Smoking, COPD, CAD, Cancer, CVA, ARF, Chemo, Hep., AIDS, mental health diagnosis, sleep apnea, morbid obesity)? @ -None Was patient admitted / discharged? Hospital course, mention meds given and route, prescriptions, significant lab abnormalities, going to OR and other pertinent info. @ -33-year-old male presents to the emergency department for URI. Vital signs stable. Patient did have some posterior pharynx erythema. Vital signs stable. Physical examination is benign otherwise. Swabs are negative. Chest x-ray nonacute. Patient discharged. Clinical presentation consistent with common cold Did you discuss the management of the patient with other professionals (professionals i.e. , PA, LEAD TECHNOLOGIST IN [employer], lab, RT, psych nurse, social worker health services, special officer automat, teacher, staff command and control officer, showcase trimmer)? Give summary @ -No Was critical care preformed (if so, how long)? @ -No Undiagnosed new problem with uncertain prognosis? @ -No Drug Therapy requiring intensive monitoring for toxicity (Heparin, Nitro, Insulin, Cardizem)? @ -No Were any procedures done? @ -No Diagnosis/symptom? Acute, or Chronic, or Acute on Chronic? Uncomplicated (wi thout systemic symptoms) or Complicated (systemic symptoms)? @ -URI Side effects of treatment? @ -No Exacerbation, Progression, or Severe Exacerbation? @ -No Poses a threat to life or bodily function? How? (Chest pain, [place], [place], pneumonia, PE, COPD, DKA, ARF, appy, cholecystitis, CVA, Diverticulitis, Homicidal, Suicidal, threat to staff... and all critical care pts) @ -No - Lab Data Lab Results 12/28/23 12/28/23 Range/Units 07:54 07:54 Influenza Type A (PCR) Not Detected (Not Detectd) Influenza Type B (PCR) Not Detected (Not Detectd) RSV (PCR) Not Detected (Not Detectd) SARS-CoV-2 (PCR) Not Detected (Not Detectd) Group A Strep (PCR) NOT DETECTED (Not Detectd) Disposition Clinical Impression: Common cold Disposition: HOME SELF-CARE Condition: Good Instructions (If sedation given, give patient instructions): Upper Respiratory Infection (ED) Is patient prescribed a controlled substance at d/c from ED?: No Referrals: None,Stated [Primary Care Provider] - 1-2 days Time of Disposition: 09:03
--- NOTE | 2023-12-28 08:38 | XR ---
EXAMINATION TYPE: XR chest 2V DATE OF EXAM: 12/28/2023 COMPARISON: 12/28/2021 HISTORY: Chest pain TECHNIQUE: Frontal and lateral views of the chest are obtained. FINDINGS: There is no focal air space opacity. No evidence for pneumothorax. No pleural effusion. The cardiac silhouette size is within normal limits. The osseous structures are grossly intact. IMPRESSION: 1. No acute cardiopulmonary process.
[2023-12-28 09:26] VITALS: BP 136/84; PULSE 93; TEMP 98.6
== END 2023-12-28 09:26 | disposition home or self-care (01) ==
LOC: EC 07:28
CPT/HCPCS: 71046; 87636; 87651; 99283